=== PATIENT | male | born 1980 | race Two or more races ===

== ENCOUNTER → 2019-08-10 | Outpatient (CLI) | payer BC ==
--- NOTE | 2019-08-10 15:53 | RAD ---
Exam: Chest 2 views INDICATION: Shortness of breath TECHNIQUE: Frontal and lateral views of the chest Comparisons: None FINDINGS: The cardiomediastinal silhouette and pulmonary vessels are within normal limits. The lung and pleural spaces are clear. IMPRESSION: No acute cardiopulmonary process. Electronically signed by: Sima Navarro MD (08/10/2019 3:50 PM) [id number]
== END ==
LOC: RAD 15:14
PROVIDERS: ATTEND Internal Medicine Cardiovascular Disease
DX: R06.02 Shortness of breath (principal); J45.909 Unspecified asthma, uncomplicated
CPT/HCPCS: 71046

== ENCOUNTER → 2019-08-17 | Outpatient (CLI) | payer BC ==
[2019-08-17 12:20] LABS: BASO % 1 % (0-3); EOS # 0.1 x10^3/uL (0.0-0.7); EOS % 3 % (0-3); HEMATOCRIT 49.1 % (39.0-53.0); HEMOGLOBIN 17.1 g/dL (13.0-17.5); LYMPH # 1.4 x10^3/uL (1.0-4.8); LYMPH % 33 % (24-48); MEAN CORPUSCULAR HEMOGLOBIN 31 pg (25-35); MEAN CORPUSCULAR HGB CONC 35 g/dL (31-37); MEAN CORPUSCULAR VOLUME 88 fL (79-100); MONO # 0.3 x10^3/uL (0.0-1.1); MONO % 7 % (0-9); NEUT # 2.4 x10^3/uL (1.8-7.7); NEUT % 57 % (31-73); PLATELET COUNT 248 x10^3/uL (140-400); RED BLOOD COUNT 5.56 x10^6/uL (4.30-5.70); RED CELL DISTRIBUTION WIDTH 13.2 % (11.5-14.5); WHITE BLOOD COUNT 4.2 x10^3/uL (4.0-11.0)
[2019-08-17 13:10] LABS: ALBUMIN 3.8 g/dL (3.4-5.0); ALBUMIN/GLOBULIN RATIO 1.1 (1.0-1.7); CALCIUM 9.2 mg/dL (8.5-10.1); CREATININE 0.9 mg/dL (0.7-1.3); GFR 94.4; POTASSIUM 4.4 mmol/L (3.5-5.1); TOTAL BILIRUBIN 0.6 mg/dL (0.2-1.0); TOTAL PROTEIN 7.2 g/dL (6.4-8.2)
[2019-08-17 13:13] LABS: CHOLESTEROL/HDL RATIO 5.2
== END ==
LOC: LAB 11:47
PROVIDERS: ATTEND Internal Medicine Cardiovascular Disease
DX: Z12.5 Encounter for screening for malignant neoplasm of prostate (principal); E78.2 Mixed hyperlipidemia; I10 Essential (primary) hypertension; R53.83 Other fatigue; E11.65 Type 2 diabetes mellitus with hyperglycemia
CPT/HCPCS: 36415; 80053; 80061; 82306; 83036; 83695; 84443; 85025; 86141; G0103

== ENCOUNTER → 2019-11-21 | Outpatient (CLI) | payer BC ==
--- NOTE | 2019-11-21 15:50 | RAD ---
RIGHT SHOULDER , 3 VIEWS Clinical Indication: Reason: PAIN, POSSIBLE ROTATOR CUFF TEAR / Spl. Instructions: / History: Comparison: None. Findings: There is no acute fracture or dislocation. Small lucencies of the humeral head may be subchondral cysts. The acromioclavicular and glenohumeral joints are intact. The visualized lung is clear. There is no evidence of a displaced rib fracture. There is no soft tissue abnormality. IMPRESSION: No acute fracture or dislocation. Electronically signed by: Richy Jenkins MD (11/21/2019 3:47 PM) [id number]
== END | disposition home or self-care (01) ==
LOC: RAD 11:06
PROVIDERS: ATTEND Internal Medicine Cardiovascular Disease
DX: M75.101 Unspecified rotator cuff tear or rupture of right shoulder, not specified as traumatic (principal)
CPT/HCPCS: 73030

== ENCOUNTER → 2020-09-11 | Outpatient (CLI) | payer BC ==
--- NOTE | 2020-09-11 11:58 | RAD ---
EXAM: Chest, 2 views. HISTORY: Shortness of breath. COMPARISON: 08/10/2019 FINDINGS: 2 views of the chest are obtained. There is no infiltrate, protrusion or pneumothorax. The heart is normal in size. IMPRESSION: No acute pulmonary finding. Electronically signed by: Larissa Castillo MD (09/11/2020 11:56 AM) [id number]
[2020-09-11 12:03] LABS: BASO % 1 % (0-3); EOS # 0.3 x10^3/uL (0.0-0.7); EOS % 6 % (0-3); HEMATOCRIT 49.4 % (39.0-53.0); HEMOGLOBIN 17.4 g/dL (13.0-17.5); LYMPH # 1.3 x10^3/uL (1.0-4.8); LYMPH % 28 % (24-48); MEAN CORPUSCULAR HEMOGLOBIN 31 pg (25-35); MEAN CORPUSCULAR HGB CONC 35 g/dL (31-37); MEAN CORPUSCULAR VOLUME 88 fL (79-100); MONO # 0.4 x10^3/uL (0.0-1.1); MONO % 8 % (0-9); NEUT # 2.6 x10^3/uL (1.8-7.7); NEUT % 57 % (31-73); PLATELET COUNT 261 x10^3/uL (140-400); RED BLOOD COUNT 5.64 x10^6/uL (4.30-5.70); RED CELL DISTRIBUTION WIDTH 12.7 % (11.5-14.5); WHITE BLOOD COUNT 4.6 x10^3/uL (4.0-11.0)
[2020-09-11 12:28] LABS: ALBUMIN 3.9 g/dL (3.4-5.0); ALK PHOS 134 U/L (46-116); ALT (SGPT) 59 U/L (16-63); ANION GAP 10 (6-14); AST (SGOT) 26 U/L (15-37); BLOOD UREA NITROGEN 11 mg/dL (8-26); BUN/CREATININE RATIO 12 (6-20); CALCIUM 8.7 mg/dL (8.5-10.1); CARBON DIOXIDE 27 mmol/L (21-32); CHLORIDE 101 mmol/L (98-107); CHOLESTEROL 275 mg/dL (0-200); CREATININE 0.9 mg/dL (0.7-1.3); GFR 93.9; GLUCOSE 322 mg/dL (70-99); HDLC 40 mg/dL (40-60); POTASSIUM 3.8 mmol/L (3.5-5.1); SODIUM 138 mmol/L (136-145); TOTAL BILIRUBIN 0.5 mg/dL (0.2-1.0); TOTAL PROTEIN 7.7 g/dL (6.4-8.2); TRIGLYCERIDES 723 mg/dL (0-150); VLDLC 145 mg/dL (0-40)
[2020-09-11 12:33] LABS: CHOLESTEROL/HDL RATIO 6.9
[2020-09-12 04:10] LABS: HEMOGLOBIN A1C 12.9 % (4.8-5.6)
== END ==
LOC: LAB 11:14
PROVIDERS: ATTEND Internal Medicine Cardiovascular Disease
DX: Z12.5 Encounter for screening for malignant neoplasm of prostate (principal); J45.909 Unspecified asthma, uncomplicated; E78.2 Mixed hyperlipidemia; R06.02 Shortness of breath; R53.83 Other fatigue; E55.9 Vitamin D deficiency, unspecified; I10 Essential (primary) hypertension; E11.65 Type 2 diabetes mellitus with hyperglycemia; M25.511 Pain in right shoulder
CPT/HCPCS: 36415; 71046; 80053; 80061; 82306; 83036; 83695; 84153; 84443; 85025; 86141; G0103